=== PATIENT | male | born 1960 | race Caucasian/White ===

== ENCOUNTER 2025-04-14 23:13 | Emergency (ER) | payer SELFPAY ==
[~2025-04-14] VITALS: Ht 177.8 cm; Wt 91.0 kg
[2025-04-14 23:22] VITALS: O2SAT 100
[2025-04-14 23:52] LABS: CLARITY URINE CLEAR (CLEAR); COLOR URINE YELLOW (YELLOW); GLUCOSE URINE 3+ (NEGATIVE); KETONES URINE 1+ (NEGATIVE); LEUKOCYTE ESTERASE URINE NEGATIVE (NEGATIVE); NITRITE URINE NEGATIVE (NEGATIVE); OCCULT BLOOD URINE TRACE (NEGATIVE); PH URINE 5.0 (4.5-8.0); PROTEIN URINE 2+ (NEGATIVE); SPECIFIC GRAVITY URINE 1.034 (1.005-1.030); UROBILINOGEN URINE 0.2 E.U./dL (0.2-1.0)
[2025-04-14] MEDS: ONDANSETRON 4MG ODT PO ONE (23:57)
[2025-04-15 00:14] LABS: BASOPHILS % 0.2 % (0.0-2.0); EOSINOPHILS % 0.3 % (0.0-5.0); HEMATOCRIT. 47.3 % (42.0-52.0); HEMOGLOBIN. 15.3 g/dL (14.0-18.0); LYMPHOCYTES % 13.3 % (20.0-50.0); MEAN PLATELET VOLUME 10.4 fl (7.4-10.4); MONOCYTES % 5.7 % (2.0-8.0); NEUTROPHILS % 80.5 % (40.0-76.0); PLATELET 239 x1000/uL (130-400); RED BLOOD CELL COUNT 5.36 mill/uL (4.7-6.1); RED CELL DISTRIBUTION WIDTH 14.1 % (11.6-14.6)
[2025-04-15 00:29] LABS: CREATININE 1.1 mg/dL (0.6-1.3); UREA NITROGEN BLOOD 14 mg/dL (9-23)
[2025-04-15 00:30] LABS: TROPONIN I HIGH SENSITIVITY 9 ng/L (3.0-53)
[2025-04-15 00:31] LABS: ASPARTATE AMINOTRANSFERASE 19 IU/L (<34); BILIRUBIN DIRECT 0.1 mg/dL (<=3.0); BILIRUBIN TOTAL 0.5 mg/dL (0.1-1.0)
[2025-04-15 00:32] LABS: PROTEIN TOTAL 7.4 g/dL (6.0-8.3)
[2025-04-15 01:39] LABS: SQUAMOUS EPITHELIAL CELL URINE FEW /lpf (RARE/1+)
[2025-04-15] MEDS: SODIUM CHLORIDE 0.9% 1,000 ML IV ONE (01:39)
[2025-04-15 01:40] LABS: RBC URINE 0-2 /hpf (0-2); WBC URINE 0-2 /hpf (0-2)
[2025-04-15] MEDS: MORPHINE SULFATE 4 MG/ML INJ (FOR IV/IM USE) IV ONE (01:40)
[2025-04-15 01:41] LABS: BACTERIA URINE NONE SEEN
[2025-04-15] MEDS ORDERED: OMEP10CA5 MT (01:59)
[2025-04-15] MEDS ORDERED: MAG-55 MT (01:59)
[2025-04-15] MEDS ORDERED: FAMO-135 MT (01:59)
[2025-04-15 02:12] VITALS: BP 168/97; PULSE 98; RESP 20; TEMP 36.8; O2SAT 96
== END 2025-04-15 02:26 | disposition home or self-care (01) ==
LOC: ER 23:13
DX: K21.9 Gastro-esophageal reflux disease without esophagitis (principal); C67.9 Malignant neoplasm of bladder, unspecified; E11.9 Type 2 diabetes mellitus without complications; Z79.899 Other long term (current) drug therapy; Z85.51 Personal history of malignant neoplasm of bladder
CPT/HCPCS: 80076; 80048; 81003; 83690; 85025; 84484; 36415; 93005; 99285; 71045; 74176; 96361; 96374; 96375; Q0162; J2270; J7030; Z7610; A4606